=== PATIENT | male | born 1945 | race Caucasian/White ===

== ENCOUNTER 2016-09-12 07:30 | Day surgery (SDC) | payer OTHER, MEDICARE ==
[2016-09-05 10:19] VITALS: BMI 34.0
[2016-09-12] MEDS ORDERED: PROPOFOL 20 ML ONE ×2 (07:34)
[2016-09-12 09:02] VITALS: TEMP 97.7
[2016-09-12 09:22] VITALS: BP 112/63; PULSE 65
== END 2016-09-12 09:29 | disposition home or self-care (01) ==
LOC: FASU-ENDO 07:30
PROVIDERS: ATTEND Internal Medicine Gastroenterology
PROC: 0DJD8ZZ Inspection of Lower Intestinal Tract, Via Natural or Artificial Opening Endoscopic (ICD-10-PCS; principal; 2016-09-12 08:39)
DX: Z86.010 Personal history of colon polyps (principal); Z83.71 Family history of colonic polyps

== ENCOUNTER 2018-02-09 07:23 | Day surgery (SDC) | payer OTHER, MEDICARE ==
[2018-02-02 15:04] VITALS: BMI 35.3
[2018-02-09] MEDS ORDERED: LIDOCAINE HCL/PF 2% SDV 5ML VIAL ONE (07:31)
[2018-02-09] MEDS ORDERED: PROPOFOL 20 ML ONE ×3 (07:31→08:56)
[2018-02-09 09:23] VITALS: TEMP 98.2
[2018-02-09 09:51] VITALS: BP 130/76; PULSE 58
--- NOTE | 2018-02-11 09:55 | PATH ---
Surgical Pathology Report Patient Name: THOMAS GRIMM JR [facility]. Rec. #: [id number] /Age/Gender: 1945 (Age: 72) / M Account: [id number] Location: [facility] Taken: 02/09/2018 Received: 02/09/2018 Reported: 02/11/2018 Physicians: Nghia Rogers M.D. Specimen(s) Received PROXIMAL RIGHT COLON Clinical History History of polyp, postoperative finding: polyp Final Diagnosis PROXIMAL RIGHT COLON POLYP, POLYPECTOMY: TUBULAR ADENOMA. Electronically Signed Lali Dawkins M.D. Gross Description Received in formalin, labeled "proximal right colon" is a rodgers, irregular portion of soft tissue measuring 0.3 cm. in greatest dimension. The specimen is submitted in toto in one cassette. WILLIS/02/09/2018 kirti/02/09/2018
== END 2018-02-09 09:55 | disposition home or self-care (01) ==
LOC: FASU-ENDO 07:23
PROVIDERS: ATTEND Internal Medicine Gastroenterology
PROC: 0DBK8ZX Excision of Ascending Colon, Via Natural or Artificial Opening Endoscopic, Diagnostic (ICD-10-PCS; principal; 2018-02-09 08:34)
DX: Z86.010 Personal history of colon polyps (principal); D12.2 Benign neoplasm of ascending colon; I10 Essential (primary) hypertension; E78.00 Pure hypercholesterolemia, unspecified; K57.30 Diverticulosis of large intestine without perforation or abscess without bleeding
CPT/HCPCS: 88305-TC

== ENCOUNTER 2023-02-04 04:12 | Day surgery (SDC) | payer OTHER ==
[2023-01-30 14:22] VITALS: BMI 37.2
[2023-02-04] MEDS ORDERED: LIDOCAINE HCL/PF 2% SDV 5ML VIAL ONE (07:17)
[2023-02-04] MEDS ORDERED: TRIAMCINOLONE ACET 40MG/1ML VIAL ONE (07:18)
[2023-02-04] MEDS ORDERED: LIDOCAINE HCL/PF 1% SDV 5ML VIAL ONE (07:18)
[2023-02-04] MEDS ORDERED: BUPIVACAINE HCL/PF 0.5% (5MG/ML) 10 ML VIAL ONE (07:18)
[2023-02-04] MEDS ORDERED: BUPIVACAINE HCL/PF 0.25% (2.5MG/ML) 10 ML VIAL ONE (07:18)
[2023-02-04] MEDS ORDERED: BUPIVACAINE HCL/PF 0.75% 10 ML VIAL ONE (07:18)
[2023-02-04] MEDS ORDERED: DEXAMETHASONE SOD PHOSPHATE 10 MG/1 ML VIAL ONE (07:19)
[2023-02-04] MEDS ORDERED: SODIUM CHLORIDE 0.9% P/F 10 ML VIAL IJ ONE (07:59)
[2023-02-04 09:07] VITALS: RESP 18
[2023-02-04] MEDS ORDERED: ACETAMINOPHEN 500 MG TABLET (FP) PO PRN (10:11)
[2023-02-04] MEDS ORDERED: BUPIVACAINE HCL/PF 0.75% 10 ML VIAL NR ONE (10:48)
[2023-02-04] MEDS ORDERED: LIDOCAINE 1% P/F 10 MG/ML VIAL INF ONE (10:48)
[2023-02-04 14:51] VITALS: BP 132/66; PULSE 63; TEMP 98.7
== END 2023-02-04 11:30 | disposition home or self-care (01) ==
LOC: JASU-SURG 04:12
PROVIDERS: ATTEND Pain Medicine Pain Medicine
PROC: 3E0T33Z Introduction of Anti-inflammatory into Peripheral Nerves and Plexi, Percutaneous Approach (ICD-10-PCS; 2023-02-04)
PROC: 3E0T3BZ Introduction of Anesthetic Agent into Peripheral Nerves and Plexi, Percutaneous Approach (ICD-10-PCS; principal; 2023-02-04 10:45)
DX: M47.816 Spondylosis without myelopathy or radiculopathy, lumbar region (principal)
CPT/HCPCS: 76000-TC-FY; J1100

== ENCOUNTER 2023-02-28 04:35 | Day surgery (SDC) | payer OTHER ==
[2023-02-26 16:56] VITALS: BMI 36.5
[2023-02-28] MEDS ORDERED: BUPIVACAINE HCL/PF 0.75% 10 ML VIAL ONE (07:22)
[2023-02-28] MEDS ORDERED: LIDOCAINE HCL/PF 1% SDV 5ML VIAL ONE (07:22)
[2023-02-28 07:36] VITALS: RESP 22
[2023-02-28] MEDS ORDERED: BUPIVACAINE HCL/PF 0.75% 10 ML VIAL NR ONE (09:31)
[2023-02-28] MEDS ORDERED: LIDOCAINE HCL 1%, 10 MG/ML (20ML VIAL) NR ONE (09:31)
[2023-02-28 10:15] VITALS: BP 129/70; PULSE 75; TEMP 98.2
[2023-02-28] MEDS ORDERED: ACETAMINOPHEN 500 MG TABLET (FP) PO PRN (13:54)
== END 2023-02-28 10:34 | disposition home or self-care (01) ==
LOC: JASU-SURG 04:35
PROVIDERS: ATTEND Pain Medicine Pain Medicine
PROC: 3E0T33Z Introduction of Anti-inflammatory into Peripheral Nerves and Plexi, Percutaneous Approach (ICD-10-PCS; 2023-02-28)
PROC: 3E0T3BZ Introduction of Anesthetic Agent into Peripheral Nerves and Plexi, Percutaneous Approach (ICD-10-PCS; principal; 2023-02-28 09:15)
DX: M47.816 Spondylosis without myelopathy or radiculopathy, lumbar region (principal)
CPT/HCPCS: 76000-TC-FY

== ENCOUNTER 2023-08-20 07:29 | Day surgery (SDC) | payer OTHER ==
[2023-08-19 11:01] VITALS: BMI 34.7
[2023-08-20 07:54] VITALS: RESP 18
[2023-08-20] MEDS ORDERED: ePHEDrine SULFATE 50 MG/1 ML AMPULE ONE (08:11)
[2023-08-20 09:14] VITALS: TEMP 97.2
[2023-08-20 10:18] VITALS: BP 110/61; PULSE 65
== END 2023-08-20 10:11 | disposition home or self-care (01) ==
LOC: FASU-ENDO 07:29
PROVIDERS: ATTEND Internal Medicine Gastroenterology
PROC: 0DBN8ZX Excision of Sigmoid Colon, Via Natural or Artificial Opening Endoscopic, Diagnostic (ICD-10-PCS; 2023-08-20)
PROC: 0DBK8ZX Excision of Ascending Colon, Via Natural or Artificial Opening Endoscopic, Diagnostic (ICD-10-PCS; principal; 2023-08-20 08:24)
DX: Z12.11 Encounter for screening for malignant neoplasm of colon (principal); D12.2 Benign neoplasm of ascending colon; D12.5 Benign neoplasm of sigmoid colon; D12.9 Benign neoplasm of anus and anal canal; K63.5 Polyp of colon; K57.30 Diverticulosis of large intestine without perforation or abscess without bleeding; Z86.010 Personal history of colon polyps; Z83.719 Family history of colon polyps, unspecified
CPT/HCPCS: 88305-TC